=== PATIENT | male | born 1980 ===

== ENCOUNTER 2024-02-28 18:34 | Emergency (ER) | payer BC ==
[2024-02-28] MEDS: Diphtheria,Pertussis(Acell),Tetanus Vaccine 0.5 ML Syringe IM ONE (19:44)
[2024-02-28] MEDS: Sulfamethoxazole/Trimethoprim 800-160 MG Tab PO ONE (19:44)
[2024-02-28] MEDS: Acetaminophen 325 MG Tab PO ONE (19:44)
== END 2024-02-28 19:56 | disposition home or self-care (01) ==
LOC: JD.ED 18:34
DX: S80.812A Abrasion, left lower leg, initial encounter (principal); L03.116 Cellulitis of left lower limb; I10 Essential (primary) hypertension; Z23 Encounter for immunization; Z86.16 Personal history of COVID-19; Z79.2 Long term (current) use of antibiotics; W19.XXXA Unspecified fall, initial encounter
CPT/HCPCS: 90471; 90715; 99283; A9270; 99284